=== PATIENT | female | born 1995 | race Caucasian/White ===

== ENCOUNTER 2017-03-13 20:40 | Emergency (ER) | payer OTHER ==
[2017-03-13 21:46] VITALS: BP 143/93
== END 2017-03-13 21:46 | disposition home or self-care (01) ==
LOC: ED 20:40
DX: O26.893 Other specified pregnancy related conditions, third trimester (principal); K04.7 Periapical abscess without sinus; Z3A.32 32 weeks gestation of pregnancy
CPT/HCPCS: J2001

== ENCOUNTER 2017-10-26 19:02 | Emergency (ER) | payer OTHER ==
[~2017-10-26] VITALS: Ht 165.1 cm; Wt 68.0 kg
[2017-10-26 19:14] VITALS: Ht 165.1 cm; Wt 68.0 kg
[2017-10-27 01:09] VITALS: BP 139/100
== END 2017-10-27 01:09 | disposition home or self-care (01) ==
LOC: ED 19:02
DX: K04.7 Periapical abscess without sinus (principal); I10 Essential (primary) hypertension; Z88.0 Allergy status to penicillin
CPT/HCPCS: J2001

== ENCOUNTER 2018-08-01 13:58 | Emergency (ER) | payer OTHER ==
[~2018-08-01] VITALS: Ht 165.1 cm; Wt 73.9 kg
[2018-08-01 14:25] VITALS: Ht 165.1 cm; Wt 73.9 kg
[2018-08-01 15:42] LABS: BASOPHIL % 0.5 % (0-2); PLATELET COUNT 317 x10^3mcL (130-400)
[2018-08-01 15:50] LABS: RED CELL DISTRIBUTION WIDTH 14.7 % (11.5-14.5)
[2018-08-01 18:24] VITALS: BP 130/85
== END 2018-08-01 18:24 | disposition home or self-care (01) ==
LOC: ED 13:58
PROVIDERS: Emergency Medicine
DX: O02.1 Missed abortion (principal); I10 Essential (primary) hypertension; Z88.1 Allergy status to other antibiotic agents
CPT/HCPCS: 36415

== ENCOUNTER 2018-08-16 10:16 | Emergency (ER) | payer OTHER ==
[~2018-08-16] VITALS: Ht 167.6 cm; Wt 74.4 kg
[2018-08-16 10:25] VITALS: Ht 167.6 cm; Wt 74.4 kg
[2018-08-16 12:08] LABS: microscopic required? YES; urine erythrocyte 1+ (NEGATIVE)
[2018-08-16 15:22] VITALS: BP 116/66
== END 2018-08-16 15:22 | disposition home or self-care (01) ==
LOC: ED 10:16
PROVIDERS: Emergency Medicine
DX: K59.00 Constipation, unspecified (principal); N12 Tubulo-interstitial nephritis, not specified as acute or chronic; I10 Essential (primary) hypertension; Z88.0 Allergy status to penicillin
CPT/HCPCS: 87491; 87591; J1885; J1956; J7030

== ENCOUNTER 2020-05-23 07:06 | Emergency (ER) | payer MEDICAID ==
[~2020-05-23] VITALS: Ht 167.6 cm; Wt 80.3 kg
[2020-05-23 07:14] VITALS: Ht 167.6 cm; Wt 80.3 kg
[2020-05-23 07:49] VITALS: BP 142/91
== END 2020-05-23 07:49 | disposition home or self-care (01) ==
LOC: ED 07:06
DX: L03.011 Cellulitis of right finger (principal); I10 Essential (primary) hypertension; Z88.0 Allergy status to penicillin